=== PATIENT | male | born 1950 ===

== ENCOUNTER 2017-03-22 17:00 | Emergency (ER) | payer OTHER ==
[2017-03-22 17:39] VITALS: BP 153/84; PULSE 61; RESP 12; TEMP 97.8; O2SAT 98
--- NOTE | 2017-03-22 18:26 | ED PDOC ---
HPI: Head Injury Time Seen by Provider: 03/22/17 17:58 Chief Complaint (Nursing): Upper Extremity Problem/Injury Chief Complaint (Provider): Head injury, right upper extremity pain History Per: Patient History/Exam Limitations: no limitations Injury Occurred (Timing): Days Ago: (6) Onset/Duration Of Symptoms: Days (6) Patient States: Fell Striking Head Loss Of Consciousness: No Additional History Per: Patient Additional Complaint(s): 66yo male, with past medical history of diabetes, presents to the ED for evaluation of right upper extremity pain and neck pain after falling 6 days ago. Patient states he was attempting to go in a building and mistook a glass door for an entryway, hit the glass door and fell backwards, striking his head, and sustaining injury to his neck and right shoulder. Patient states he has pain in his neck and right shoulder, both worsening with movement. He denies any headache, nausea, vomiting, chest pain or extremity weakness. He offers no additional medical complaints. Past Medical History Reviewed: Historical Data, Nursing Documentation, Vital Signs Vital Signs: Last Vital Signs Temp 97.8 F 03/22/17 17:37 Pulse 61 03/22/17 17:37 Resp 12 03/22/17 17:37 BP 153/84 H 03/22/17 17:37 Pulse Ox 98 03/22/17 17:37 - Medical History PMH: Diabetes - Surgical History Surgical History: No Surg Hx - Family History Family History: States: No Known Family Hx - Social History Current smoker - smoking cessation education provided: No Alcohol: None Drugs: Denies - Home Medications Home Medications: Ambulatory Orders Medication Instructions Recorded Cyclobenzaprine [Cyclobenzaprine 10 mg PO BID #14 tab 03/22/17 HCl] Ibuprofen [Motrin] 400 mg PO Q6 #30 tab 03/22/17 - Allergies Allergies/Adverse Reactions: Allergies Allergy/AdvReac Type Severity Reaction Status Date / Time No Known Allergies Allergy Verified 03/22/17 17:37 Review of Systems ROS Statement: Except As Marked, All Systems Reviewed And Found Negative Eyes: Negative for: Vision Change Musculoskeletal: Positive for: Neck Pain, Shoulder Pain (right) Neurological: Negative for: Weakness, Numbness, Headache Physical Exam - Reviewed Nursing Documentation Reviewed: Yes Vital Signs Reviewed: Yes - Physical Exam Appears: Positive for: Non-toxic, No Acute Distress Head Exam: Positive for: ATRAUMATIC, NORMAL INSPECTION, NORMOCEPHALIC Skin: Positive for: Warm, Dry Eye Exam: Positive for: EOMI (left extra-occular muscles weaker than right), PERRL Neck: Positive for: Supple (mild c-spine tenderness noted.) Cardiovascular/Chest: Positive for: Regular Rate, Rhythm Respiratory: Positive for: Normal Breath Sounds. Negative for: Respiratory Distress Extremity: Positive for: Normal ROM, Other (left upper extremity with weaker strength than right.). 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 Negative for: Motor /Sensory Deficits, Aphasia, Facial Droop - ECG O2 Sat by Pulse Oximetry: 98 (RA) Pulse Ox Interpretation: Normal Medical Decision Making Medical Decision Making: Time: 1800 Impression: Head injury s/p fall, r/o brain bleed Plan: -- CT Head w/o contrast Reassess vrad: COMPARISON: There are no prior studies for comparison. FINDINGS: Artifacts: Motion artifact degrades image quality. Streak artifact degrades image quality. Brain: Ventricles are normal in size and configuration. There is no midline shift. There are basal ganglia calcifications bilaterally. There are prominent Virchow-Isac spaces bilaterally. There are no intra-axial or extra-axial mass lesions or areas of hemorrhage. There are no abnormal fluid collections. Mar-white differentiation is maintained. Ventricles: See above. Bones: Cranial vault is intact. Soft tissues: unremarkable Sinuses: There is no acute sinusitis. Ears and mastoids: Middle ears and mastoids are unremarkable Orbits: There are no acute orbital abnormalities. Right lens is not visualized IMPRESSION: Slightly limited by patient motion, no acute intracranial abnormality Pt given tylenol and flexril inn ED. pt advised to have pmd f/u and d.c with flexirl and motrin for pain. stable VS and well appearing. Scribe Attestation: Documented by Gin Pearce acting as a scribe for INGRID Jack Provider Attestation: All medical record entries made by the Scribe were at my direction and personally dictated by me. I have reviewed the chart and agree that the record accurately reflects my personal performance of the history, physical exam, medical decision making, and the department course for this patient. I have also personally directed, reviewed, and agree with the discharge instructions and disposition. Disposition - Clinical Impression Clinical Impression: Muscle spasm - Patient ED Disposition Is Patient to be Admitted: No Counseled Patient/Family Regarding: Studies Performed, Diagnosis, Need For Followup, Rx Given - Disposition Referrals: [facility] [Outside] [facility] [Outside] Disposition: Routine/Home Disposition Time: 21:41 Condition: STABLE Prescriptions: Cyclobenzaprine [Cyclobenzaprine HCl] 10 mg PO BID #14 tab Ibuprofen [Motrin] 400 mg PO Q6 #30 tab Instructions: Cervical Strain (DC), Musculoskeletal Pain (ED) Forms: [facility] ED School/Work Excuse Print Language: MACEDONIAN
--- NOTE | 2017-03-22 21:35 | CT ---
EXAM: CT Head Without Intravenous Contrast EXAM DATE/TIME: 03/22/2017 6:16 PM CLINICAL HISTORY: 66 years old, male; Injury or trauma; Injury Patient states: Last week , he walked into a glass door; Initial encounter; Concussion / head injury; Consciousness not specified; Additional info: Head injury some neuro deficit TECHNIQUE: Axial computed tomography images of the head/brain without intravenous contrast. All CT scans at this facility use one or more dose reduction techniques, viz.: automated exposure control; ma/kV adjustment per patient size (including targeted exams where dose is matched to indication; i.e. head); or iterative reconstruction technique. Coronal and sagittal reformatted images were created and reviewed. COMPARISON: There are no prior studies for comparison. FINDINGS: Artifacts: Motion artifact degrades image quality. Streak artifact degrades image quality. Brain: Ventricles are normal in size and configuration. There is no midline shift. There are basal ganglia calcifications bilaterally. There are prominent Virchow-Isac spaces bilaterally. There are no intra-axial or extra-axial mass lesions or areas of hemorrhage. There are no abnormal fluid collections. Mar-white differentiation is maintained. Ventricles: See above. Bones: Cranial vault is intact. Soft tissues: unremarkable Sinuses: There is no acute sinusitis. Ears and mastoids: Middle ears and mastoids are unremarkable Orbits: There are no acute orbital abnormalities. Right lens is not visualized IMPRESSION: Slightly limited by patient motion, no acute intracranial abnormality
== END 2017-03-22 21:53 | disposition home or self-care (01) ==
LOC: H.ER 17:00
DX: S09.90XA Unspecified injury of head, initial encounter (principal); M25.511 Pain in right shoulder; W19.XXXA Unspecified fall, initial encounter; Y92.89 Other specified places as the place of occurrence of the external cause; E11.9 Type 2 diabetes mellitus without complications